=== PATIENT | female | born 1990 | race Caucasian/White ===

== ENCOUNTER 2019-03-21 04:50 | Inpatient (IN) | payer OTHER, SELFPAY ==
--- NOTE | 2019-03-19 12:52 | HP.PCM_ITS ---
History and Physical Date of Admission: 03/22/19 Pre-Op History and Physical ? HPI: The patient is a 28 year old female presenting for pre-operative visit. She is scheduled for?, for?h/o previous c/s on?03/22/19. ??Procedure discussed along with risks, benefits and complications. ?Other alternatives discussed for management. Consent form signed??Yes.? PAST?MEDICAL?HISTORY PAST MEDICAL HISTORY Diagnosis Date ? Cystic fibrosis screening 2016 ? done, neg ? Scoliosis ? ? ? PAST?SURGICAL?HISTORY PAST SURGICAL HISTORY Procedure Laterality Date ? SECTION SINGLE ? 08/01/2017 ? PAST SURGICAL HISTORY OF ? 2009 ? BACK SURGERY ? ? CURRENT?MEDICATIONS Current Outpatient Medications Medication Sig Dispense Refill ? PNV95/IRON FUM/FOLIC ACID ( ORAL) Take ?by mouth. ? ? ? No current facility-administered medications for this visit.? ? ALLERGIES:?Patient has no known allergies. ? PERSONAL HISTORY:? 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 FAMILY HISTORY:? FAMILY?HISTORY FAMILY HISTORY Problem Relation Age of Onset ? No Known Problems Mother ? ? No Known Problems Father ? ? No Known Problems Brother ? ? No Known Problems Sister ? ? Diabetes Maternal Grandmother ? ? Alzheimer's Disease Paternal Grandmother ? ? Heart Attack Maternal Grandfather ? ? Breast Cancer Maternal Aunt ?in her 40's ? other (Other) Maternal Aunt ?No obstetrics gynecology physician/colon cancer ? Heart Attack Son ? ? REVIEW OF SYMPTOMS: GENERAL: denies fevers or chills ENDOCRINOLOGY: has not been on steroids Cardiology : denies palpitations or chest pain Respiratory: denies SOB or cough Hematology: denies history of prolonged bleeding or easy bruising or VTE Allergy: Denies history of personal or family history of allergy to anesthesia ? ? PHYSICAL EXAMINATION: ? VITALS:?Last menstrual period 06/21/2018, not currently . ? GENERAL:??The patient is well nourished, well hydrated in no acute distress. ?, The patient is oriented to time, place, and person. NECK:?Supple. No lynphadenopathy, normal thyroid, no thyromegaly. LUNGS:?Clear to auscultation bilaterally. no wheezes, rhonchi or rales HEART:?Regular rate and rhythm, Normal heart sounds and No murmurs or gallops abd- soft, nontender, gravid ? IMPRESSION/PLAN: The risks/benefits/alternatives and personal involved for the planned?c/s?were reviewed with the patient. Her questions were answered to her satisfaction and she desires to proceed. ?Consent was signed. ?I reviewed with her postop instructions and expectations. ? ? I have reviewed and updated past medical and surgical history, medications and allergies? This history and physical was completed in my office on 03/19/2019 Irma Molina M.D.
[2019-03-21] VITALS (23 sets, daily range): BP systolic 84–114; BP diastolic 38–74; PULSE 69–96; RESP 16–18; TEMP 36.2–36.9; O2SAT 98–100; BMI 29.0
[2019-03-21] MEDS: Lactated Ringers 1,000 ML 999 ML IV (05:15)
[2019-03-21 05:38] LABS: Absolute Lymphocyte Count 2.24 X10^3/ul (0.83-4.51); Absolute Neutrophil Count 6.3 X10^3/uL (2.0-7.7); Basophil# 0.01 X10^3/uL; Basophil% 0.1 % (0-1); Eosinophil# 0.06 X10^3/uL; Eosinophils% 0.6 % (0-5); Hematocrit 41.4 % (37-47); Lymphocyte # 2.24 X10^3/ul (4.0); Lymphocyte % 23.5 % (19-41); Mean Corp Hgb Conc 33.8 g/gl (32-36); Mean Corpuscular Hgb 29.6 pg (27.0-32.0); Mean Corpuscular Volume 87.5 fL (81-99); Mean Platelet Vol. 10.5 fl (6.2-12.0); Monocyte# 0.87 X10^3/uL; Monocyte% 9.1 % (0-10); Neutrophil # 6.31 X10^3/uL (2.7-7.7); Neutrophil % 66.2 % (47-70); Platelet Count 212 K/mm3 (150-450); RBC Distribution Width CV 13.6 % (11.6-14.6); RBC Distribution Width SD 43.3 fl (35.1-43.9); Red Blood Count 4.73 M/mm3 (4.2-5.4); White Blood Count 9.5 K/mm3 (4.4-11.0)
[2019-03-21 05:39] LABS: POSITIVE COUNT NO; POSITIVE DIFFERENTIAL NO; POSITIVE MORPHOLOGY NO
[2019-03-21] MEDS: Lactated Ringers 1,000 ML 150 ML IV (06:50)
[2019-03-21] MEDS: Sodium Citrate/Citric Acid 30 ML UDC PO (07:18)
[2019-03-21] MEDS: Oxytocin 30 units/NS 500 ml 30 UNITS/500 ML IV.SOLN 167 UNITS IV (07:52)
[2019-03-21] MEDS: Cefazolin 2 GM in 0.9% Normal Saline 100 ML IV (08:13)
--- NOTE | 2019-03-21 08:23 | PCM.OPRPT ---
Delivery Classification: Scheduled Final DIONNE: 03/28/19 Final DIONNE Source: US <20 weeks Gestational age: 39 Weeks and 0 Days Indications for : Repeat Elective Description of Procedure: The patient was taken to the operating room. She was prepped and draped in the dorsal supine position with a leftward tilt. A Pfannenstiel skin incision was made approximately 2 cm above the symphysis pubis and carried through to underlying layer fascia with the scalpel. The fascia was incised incised in the midline and extended laterally with the Mohr scissors. The fascia was dissected off the rectus muscles with blunt and sharp dissection. The rectus muscles were in the midline and the peritoneum was entered bluntly. The peritoneal incision was stretched and the bladder blade was placed. The uterine incision was made in a low transverse fashion with the scalpel and extended superiorly and inferiorly with blunt dissection. The amniotic membranes were ruptured bluntly and clear amniotic fluid returned. The 's head was brought to the incision in the flexed position, an attempt was made to deliver it with fundal pressure but there is very minimal stretch to the rectus muscles. The incision was extended somewhat in the left rectus muscle was divided slightly and the skin incision was extended as well. The head then engaged, but was still not able to be delivered with fundal pressure so the vacuum was placed on the flexion point and the vacuum created 550 mmHg. With one pull and no pop offs the head then delivered. A loose nuchal cord x1 was easily reduced. The remainder of the infant was delivered with gentle traction and fundal pressure in the standard fashion. The mouth and nares were bulb suctioned. The cord was clamped and cut as the was stimulated. Cord clamping was delayed. The infant was handed off to the waiting nursing staff. The placenta was delivered with fundal massage and gentle traction in the standard fashion. The uterus was exteriorized and cleared of all clots and debris. The cervix was dilated with a ring forcep. The uterine incision was closed with #1 Vicryl in a running locked fashion. A second layer of the same suture was used in an imbricating fashion. The incision was examined and was found to be hemostatic. The uterus was placed back into the peritoneal cavity and hemostasis was again confirmed. The rectus muscles were examined and any bleeding was Bovie cauterized. The parietal peritoneum and rectus muscles were closed en bloc with an 0 Vicryl running suture. The surgical teams outer gloves were then changed. The rectus fascia was examined and any bleeding was Bovie cauterized and the rectus fascia was closed with 1 Vicryl suture in a running standard fashion. The subcutaneous tissue was examining and any bleeding was Bovie cauterized. The skin was closed in a subcuticular fashion. Performed the entire procedure with assistance. All sponge, lap, and needle counts were correct. The patient was taken to her room for recovery in a stable condition. Amniotic Membrane Rupture Type: Artificial Amniotic Fluid Description: Clear - large amount Placenta Disposition: [facility] Drain: Jerez to straight drain Fluids Replaced: 1600cc Cord Entanglement: Around neck x 1, loose Nuchal Cord Compression: Without compression Cord Vessel Description: 3 Vessels Esitmated Blood Loss (ml): 800 Infant Gender: Male (1 minute): 9 (5 minute): 9 Delayed cord clamping: Yes Pre-op Antibiotic Given: Ancef 2 grams IV x1 - Admit VTE Documentation VTE Present on Admission: No VTE Mechan Device Prophylaxis: SCD's VTE Pharm Prophylaxis ordered?: No Reason prophylaxis not ordered:: Procedure Not Indicated
[2019-03-21] MEDS: Lactated Ringers 1,000 ML 100 ML IV ×3 (08:30→15:33)
[2019-03-21] MEDS: Ondansetron 4 MG/2 ML Vial IV (09:55)
[2019-03-21] MEDS: Nalbuphine 10 MG/ML Ampul 5 MG IV (11:08)
[2019-03-21] MEDS: 0.9% Saline Lock 10 ML Syringe IV ×2 (14:45→21:08)
[2019-03-21] MEDS: Ketorolac 30 MG/ML Syringe IV ×2 (14:45→21:07)
[2019-03-21] MEDS: Senna/Docusate Sodium 1 Tablet PO (23:47)
[2019-03-22] VITALS (8 sets, daily range): BP systolic 95–110; BP diastolic 47–57; PULSE 79–88; RESP 15–18; TEMP 36.5–36.9; O2SAT 99–100
[2019-03-22] MEDS: Ketorolac 30 MG/ML Syringe IV ×4 (03:25→21:47)
[2019-03-22] MEDS: 0.9% Saline Lock 10 ML Syringe IV (03:26)
[2019-03-22 05:43] LABS: Hematocrit 32.9 % (37-47); Hemoglobin 10.8 g/dl (12.0-15.0); Mean Corp Hgb Conc 32.8 g/gl (32-36); Mean Corpuscular Volume 88.4 fL (81-99); Mean Platelet Vol. 10.5 fl (6.2-12.0); Platelet Count 156 K/mm3 (150-450); RBC Distribution Width CV 13.9 % (11.6-14.6); RBC Distribution Width SD 45.4 fl (35.1-43.9); Red Blood Count 3.72 M/mm3 (4.2-5.4); White Blood Count 12.1 K/mm3 (4.4-11.0)
[2019-03-22 05:45] LABS: Scan Indicated on CBC? Y/N NO
[2019-03-22] MEDS: Acetaminophen 500 MG Tablet 1000 MG PO (08:17)
--- NOTE | 2019-03-22 08:28 | PCM.PN.OB ---
Subjective: Pain well controlled. Average lochia. Tolerating regular diet. Was a little bit lightheaded yesterday but feeling much better this morning. No chest pain or shortness of breath. - Physical Exam General: Alert, Cooperative, No apparent distress Abdomen: Soft, Distended - Currently, softly, Tender - Appropriately, - Extremities: Edema - Trace Skin: Incision - Clean dry and intact bandage Vital Signs Temp Pulse Resp BP Pulse Ox 98.2 F 79 15 95/47 L 100 03/22/19 03:27 03/22/19 05:28 03/22/19 05:28 03/22/19 03:27 03/22/19 05:28 Oxygen Delivery Method Room Air Weight: 81.647 kg Body Mass Index (BMI) 29.0 Intake and Output for Last 24 Hours 03/20/19 03/21/19 03/22/19 23:59 23:59 23:59 Intake Total 7507 / 7507 771 / 771 Output Total 3200 / 3200 450 / 450 Balance 4307 / 4307 321 / 321 Laboratory Tests Past 24 Hrs 03/22/19 05:32 WBC 12.1 H RBC 3.72 L Hgb 10.8 L Hct 32.9 L MCV 88.4 MCH 29.0 MCHC 32.8 RDW 13.9 RDW Differential 45.4 H Plt Count 156 MPV 10.5 Medical Necessity - Tobacco Use Smoking Status: Never smoker Assessment/Plan Postoperative day #1 status post repeat section. Mild acute blood loss anemia is appropriate for blood loss during surgery hemodilution. Patient is doing well. is breast-feeding and doing well. Routine care for today.
[2019-03-22] MEDS: Senna/Docusate Sodium 1 Tablet PO (09:22)
[2019-03-23 01:55] VITALS: BP 97/58; PULSE 78; RESP 18; TEMP 36
[2019-03-23] MEDS: 0.9% Saline Lock 10 ML Syringe IV (02:22)
[2019-03-23] MEDS: Ketorolac 30 MG/ML Syringe IV ×2 (02:22→09:23)
[2019-03-23] MEDS: oxyCODONE 5 MG Tablet PO (07:51)
[2019-03-23 08:00] VITALS: BP 106/65; PULSE 88; RESP 16; TEMP 36.8; O2SAT 96
--- NOTE | 2019-03-23 09:27 | DCINST_ITS ---
Discharge Diet: No Restrictions Discharge Activity: May Not Drive - for 2 weeks or while taking narcotic pain meds., May Shower, May Take a Tub Bath - in 7 days. May resume sexual activity in: 4-6 weeks Lifting Restrictions: 20 pounds Additional Activity Instructions:: Nothing in the vagina for 4-6 weeks. You may return to work/school in 6 weeks. Call your doctor if your incision/area has: Continuous Slow Oozing, Sudden Increased Bleeding, Increased Pain/ Swelling, Increased Redness, Foul Smelling Discharge Call your doctor if you observe: Fever of 101 or Higher, Inability to urinate, Inability to have a bowel movement, Using more than one pad per hour, Uncontrolled pain Suture Line Care: Avoid Pulling/Pushing, Avoid Pinching/Bending Cleanse incision/area with: Soap & Water, Keep Dressing Clean & Dry Additional Instructions: If you experience any of the following, contact your healthcare provider. * Bleeding that soaks a pad every hour for 2 hours * Fever 100.4 or higher * Unrelieved incision or abdominal pain * Swelling, redness, discharge or bleeding from your incision or episiotomy site * Your incision begins to separate * Problems urinating (including inability to urinate or burning while urinating). * Visual changes * Severe headache * Flu-like symptoms * Pain or redness in one of both of your breasts * Pain, warmth, tenderness or swelling in your legs, especially the calf area * Frequent nausea and vomiting * Symptoms of depression or anxiety If you experience any of the following, call 911 or go to the nearest Emergency Room. * Chest pain * Problems breathing * Seizure activity * Partial or complete paralysis of a body part, slurred speech, weakness or drooping of the face, or a sudden inability to walk or hold your balance Allergies/Adverse Reactions: Allergies No Known Allergies Allergy (Verified 08/01/17 10:55) Medications to take at Discharge Vits [Prenatabs FA ] 1 tablet PO DAILY 07/25/17 Acetaminophen [Tylenol] 1,000 mg PO Q8H PRN tablet 03/23/19 Docusate Sodium [Colace] 100 mg PO BID capsule 03/23/19 Ibuprofen [Motrin] 600 mg PO Q6H PRN #60 tab 03/23/19 Oxycodone HCl/Acetaminophen [Percocet 5-325] 1 - 2 tab PO Q6H PRN PRN 7 Days #5 tab 03/23/19 The following prescriptions were given: Oxycodone HCl/Acetaminophen [Percocet 5-325] 1 - 2 tab PO Q6H PRN PRN 7 Days #5 tab PRN Reason: Pain Ibuprofen [Motrin] 600 mg PO Q6H PRN #60 tab PRN Reason: Pain Follow-Up: Call to make an appointment with your doctor for an incision check in 1-2 weeks. You will also need a 6 week post- follow up appointment. Test results from this visit will be discussed in further detail at your follow- up appointment, if applicable. Please Follow Up With: Irma Molina MD - Follow-up as scheduled for 1-2 week and 6 week PP visit Primary Care Physician: Stefania Arrington MD [Primary Care Provider] - Proposed Discharge Date: 03/23/19
--- NOTE | 2019-03-23 09:50 | PN.OBGYN_ITS ---
Subjective: Patient sitting up in bed bonding with baby at this time. Patient reports that baby is latching well overall. Patient is ambulatory and denies severe incisional pain, denies issues with urination. Patient desires discharge to home today. Objective: VSS, Afebrile Nipples without cracks or blisters, no ecchymoses noted Abdomen NT x 4 quadrants, FF midline 2FB below umbilicus, incisional dressing dry and intact +2/4 reflexes in LE, no edema, negative calf tenderness BL Scant rubra lochia - Physical Exam General: Alert, Oriented x3, Cooperative HEENT: Atraumatic, Normocephalic Neck: Supple Lungs: Normal air movement Cardiovascular: Regular rate, Regular Rhythm Abdomen: Soft, Non Tender Extremities: No edema, Capillary Refill Less than 3 Seconds Skin: No rashes, No breakdown Musculoskeletal: No Tenderness to Palpation of Joints or Extremities Neurological: Cranial nerves II-XII grossly intact Psych/Mental Status: Normal Affect, Appropriate Vital Signs Temp Pulse Resp BP Pulse Ox 98.2 F 88 16 106/65 96 03/23/19 08:00 03/23/19 08:00 03/23/19 08:00 03/23/19 08:00 03/23/19 08:00 Oxygen Delivery Method Room Air Weight: 180 lb Body Mass Index (BMI) 29.0 Intake and Output for Last 24 Hours 03/21/19 03/22/19 03/23/19 23:59 23:59 23:59 Intake Total 7507 / 7507 771 / 771 Output Total 3200 / 3200 900 / 900 Balance 4307 / 4307 -129 / -129 Medical Necessity - Tobacco Use Smoking Status: Never smoker Assessment/Plan 28 y/o s/p rpt LTCS, POD #2, Normal PP Course P: 1) Discharge patient to home 2) PP instructions and incision care reviewed 3) Follow-up as scheduled at [facility] HENSLEY
[2019-03-23] MEDS: Docusate Sodium 100 MG Capsule PO (10:04)
--- NOTE | 2019-03-25 17:07 | NURSING ---
19 Bili elevated to 19, but milk in and nursing well and lots of poo's and pee's and stool yellow/yellow. Bleeding decreasing. All is going well! Hospital stay went super well! Vika RN IBCLC
== END 2019-03-23 11:40 | disposition home or self-care (01) | DRG 787 ==
PROVIDERS: Admitting Provider Obstetrics & Gynecology; Referring Provider Obstetrics & Gynecology; Visit Provider Obstetrics & Gynecology
PROC: 10D00Z1 Extraction of Products of Conception, Low, Open Approach (ICD-10-PCS; CPT 59514; principal; 2019-03-21 07:15)
DX: O34.211 Maternal care for low transverse scar from previous cesarean delivery (principal); D62 Acute posthemorrhagic anemia; O69.81X0 Labor and delivery complicated by cord around neck, without compression, not applicable or unspecified; O90.81 Anemia of the puerperium; O99.89 Other specified diseases and conditions complicating pregnancy, childbirth and the puerperium; M41.9 Scoliosis, unspecified; Z3A.39 39 weeks gestation of pregnancy; Z37.0 Single live birth
CPT/HCPCS: 85025; 85027; 86850; 86900; 99218; J7120; A4216; G0378; J2405

== ENCOUNTER → 2021-02-26 09:47 | Outpatient (CLI) | payer OTHER, SELFPAY ==
[2019-03-21 05:48] VITALS: BMI 29.0
[2021-02-26 10:53] LABS: Glucose GTT-Gestation. Fasting 81 mg/dL (<105)
[2021-02-26 11:42] LABS: Glucose GTT-Gestational 1 Hr 136 mg/dL (<190)
[2021-02-26 13:17] LABS: Glucose GTT-Gestational 2 Hr 123 mg/dL (<165)
[2021-02-26 14:07] LABS: Glucose GTT-Gestational 3 Hr 100 L (<145)
[2021-02-27 10:54] LABS: CMV Acute Antibody IgM < 30.0 AU/mL (0.0-29.9); Toxoplasma Gondii IgM 5.3 AU/mL (0.0-7.9)
[2021-02-27 10:55] LABS: CMV Antibody IgG < 0.60 U/mL (0.00-0.59); Toxoplasma Gondii IgG 66.5 IU/mL (0.0-7.1)
== END ==
PROVIDERS: Referring Provider Obstetrics & Gynecology; Visit Provider Obstetrics & Gynecology
DX: O35.0XX1 Maternal care for (suspected) central nervous system malformation in fetus, fetus 1 (principal); O30.009 Twin pregnancy, unspecified number of placenta and unspecified number of amniotic sacs, unspecified trimester; Z3A.00 Weeks of gestation of pregnancy not specified
CPT/HCPCS: 36415; 82951; 82952; 86644; 86645; 86777; 86778

== ENCOUNTER 2021-05-18 09:10 | Inpatient (IN) | payer OTHER, SELFPAY ==
[2019-03-21 05:48] VITALS: BMI 29.0
--- NOTE | 2021-05-12 13:38 | PCM.HP.BLA ---
History and Physical Date of Admission: 05/18/21 ASSESSMENT & PLAN: 31 year old EGA:37w5d. Plan for delivery in <30 days. ? POST DELIVERY CONTRACEPTION: Discussed post-delivery contraception options. Patient received written information about post-delivery contraception options. Patient desires permanent sterilization. ? SUBJECTIVE: CHIEF COMPLAINT: Scheduled section ? HISTORY OF THE PRESENT ILLNESS: The patient is a 31 year old female, , who is at 37w5d with an DIONNE of 05/28/2021, by Last Menstrual Period dating method. Patient has Good movement. Denies vaginal bleeding.. Patient is GBS Positive. ? Her has been complicated by the following issues: Active Non-Hospital Problems ? Diagnosis Date Noted ? Elevated glucose 03/01/2021 ? ? Overview Note: ? ? abnormal 1 hr, 3hr normal. Irma Molina MD ? ? Ventriculomegaly of brain on ultrasound 02/23/2021 ? ? Overview Note: ? ? 03/23/21: resolved. Karla Cook MD ? maternal serum Toxoplasma results (IgG positive, IgM negative, high avidity) Lab Interpretation (lab tab): 'because our lab uses several serological assays beyond IgG and IgM) our results are most likely consistent with an infection acquired in the distant past and prior to . The incidence of congenital toxoplasmosis in offspring of women infected prior to gestation has been shown to be extremely rare (approaching zero) unless a woman in immunocompromised. Anti-toxoplasma treatment is not indicated in this patient unless she is immunocompromised.' ? Reviewed the above with Ms. Dolan. Discussed; questions answered. Let her know that the lab recommends testing the 10 days after for, a least, the serological panel at [facility] ([facility]), IgG, IgM ISAGA and IgA and be followed until Toxoplasma IgG disappears. Patient wishes this. Will communicate to her Clinical Physician Assistant to communicate to peds team. ? Also recommended per Dr. Menezes to follow-up with ultrasounds to follow growth and ventriculomegaly Patient agreeable. ? ? ? Moderate polyhydramnios; resolved unilateral ventriculomegaly (risk-reducing NIPS; Toxoplamosis serologies c/w distant infection) 02/23/2021 ? ? Overview Note: ? ? 05/05/21: GALI 34cm. Karlajorge luis Cook MD ? 03/23/21: borderline high normal now at 24.5cm. Karla Cook MD ? ? ? Family history of cystic fibrosis 10/14/2020 ? ? Overview Note: ? ? 10/14/2020 Patient's niece with cystic fibrosis. Patient had CF carrier screening testing in the past and was negative . TKRN ? ? Maternal care due to low transverse uterine scar from previous delivery 08/16/2018 ? ? Overview Note: ? ? plans repeat c/s. Irma Molina MD ? ? ? Positive GBS test 07/17/2017 ? Scoliosis 07/14/2017 ? Encounter for supervision of other normal , second trimester 03/02/2017 ? ? ? ANESTHESIA COMPLICATIONS: None ? HISTORY REVIEW PAST MEDICAL HISTORY PAST MEDICAL HISTORY Diagnosis Date ? Cystic fibrosis screening 2016 ? done, neg ? Scoliosis ? ? PAST SURGICAL HISTORY PAST SURGICAL HISTORY Procedure Laterality Date ? DELIVERY ONLY ? 03/21/2019 ? RC/S low transverse ? SECTION SINGLE ? 08/01/2017 ? PAST SURGICAL HISTORY OF ? 2009 ? BACK SURGERY ? FAMILY HISTORY FAMILY HISTORY Problem Relation Age of Onset ? No Known Problems Mother ? ? No Known Problems Father ? ? No Known Problems Brother ? ? No Known Problems Sister ? ? Diabetes Maternal Grandmother ? ? Stroke Maternal Grandmother ? ? Heart Attack Maternal Grandmother ? ? Alzheimer's Disease Paternal Grandmother ? ? Heart Attack Maternal Grandfather ? ? Breast Cancer Maternal Aunt ? ? in her 40's ? other (Other) Maternal Aunt ? ? No sales support assistant/colon cancer ? No Known Problems Son ? ? No Known Problems Son ? ? SOCIAL HISTORY Social History ? Tobacco Use ? Smoking status: Never Smoker ? Smokeless tobacco: Never Used Vaping Use ? Vaping Use: Never used Substance Use Topics ? Alcohol use: No ? Drug use: No ? Obstetric History T2 L2 SAB0 TAB0 Ectopic0 Multiple0 Live Births2 Comment: G1 c/s breech- Op report reviewed, double layer closure w/ vicryl Name of Baby 1: Basilio Date: 08/01/17 GA: 39w0d Delivery: , Low Transverse Apgar1: Not recorded Apgar5: Not recorded Living: Living ? Name of Baby 2: Nakul Date: 03/21/19 GA: 39w0d Delivery: , Low Transverse Apgar1: 9 Apgar5: 9 Living: Living ? Name of Baby 3: Not recorded Date: Not recorded GA: Not recorded Delivery: Not recorded Apgar1: Not recorded Apgar5: Not recorded Living: Not recorded ? ? ALLERGIES: ALLERGIES ALLERGIES No Known Allergies ? PRIOR TO ADMISSION MEDICATIONS: Prior to Admission medications as of 05/12/21 1011 Medication Sig Last Dose Taking PNV95/IRON FUM/FOLIC ACID ( ORAL) Take by mouth. Taking Yes ? No medication comments found. ? REVIEW OF SYSTEMS: GENERAL: denies fevers or chills ENDOCRINOLOGY: has not been on steroids Cardiology : denies palpitations or chest pain Respiratory: denies SOB other than normal for or cough Hematology: denies history of prolonged bleeding or easy bruising or VTE Allergy: Denies history of personal or family history of allergy to anesthesia ? ? OBJECTIVE: ? PHYSICAL EXAM: General: WD, WN HEENT: NC/AT, sclera white, pupils equal, no thyromegaly Lungs: clear, Heart: RR, S1, S2 Abdomen: soft, nontender, no masses Uterus: soft, NT Extremities: no edema DTRs: 2+ ? Pelvimetry: n/a ? LAST VITALS: BP 98/58 Wt 176 lb (79.8 kg) LMP 08/21/2020 BMI 28.41 kg/m? Heart Rate: 140 LABS Diagnostic tests reviewed for today's visit: BPP ? Delivery Plan: Delivery Plan includes: , Primary Reason for is previous c/s, polyhydramnios, and EFW is AGA. Plan for bilateral salpingectomy for sterilization Assessment & Plan Assessment/Plan (1) 38 weeks gestation of : (2) Supervision of other high risk pregnancies, third trimester: (3) Request for sterilization: (4) Polyhydramnios affecting in third trimester: (5) Previous delivery affecting :
[2021-05-18] VITALS (13 sets, daily range): BP systolic 87–109; BP diastolic 44–63; PULSE 66–87; RESP 16–18; TEMP 36.1–37.1; O2SAT 96–100; BMI 28.4
[2021-05-18] MEDS: Lactated Ringers 1,000 ML 999 ML IV (10:15)
[2021-05-18 10:38] LABS: Absolute Lymphocyte Count 1.75 X10^3/uL (0.83-4.51); Absolute Neutrophil Count 7.4 X10^3/uL (2.0-7.7); Basophil# 0.02 X10^3/uL; Basophil% 0.2 % (0-1); Eosinophil# 0.03 X10^3/uL; Eosinophils% 0.3 % (0-5); Hematocrit 38.8 % (37-47); Hemoglobin 12.7 g/dL (12.0-15.0); Lymphocyte # 1.75 X10^3/ul (0.83-4.51); Lymphocyte % 17.4 % (19-41); Mean Corp Hgb Conc 32.7 g/dL (32-36); Mean Corpuscular Volume 85.7 fL (81-99); Mean Platelet Vol. 10.9 fl (6.2-12.0); Monocyte# 0.74 X10^3/uL; Monocyte% 7.4 % (0-10); NRBC Flagged by Analyzer 0 % (0-5); Neutrophil # 7.42 X10^3/uL (2.7-7.7); Platelet Count 219 K/mm3 (150-450); RBC Distribution Width CV 13.5 % (11.6-14.6); RBC Distribution Width SD 41.8 fl (35.1-43.9); Red Blood Count 4.53 M/mm3 (4.2-5.4)
[2021-05-18] MEDS: Acetaminophen 500 MG Tablet 1000 MG PO ×3 (11:47→23:58)
[2021-05-18] MEDS: Lactated Ringers 1,000 ML 150 ML IV (11:47)
[2021-05-18] MEDS: Sodium Citrate/Citric Acid 30 ML UDC PO (14:15)
[2021-05-18] MEDS: Cefazolin 2 GM in 0.9% Normal Saline 100 ML IV (14:35)
--- NOTE | 2021-05-18 14:59 | FALS_PTH ---
PATIENT: MORGAN KAISER LOC: [facility] U#:[id number] AGE/SX: 31/F ROOM: WP004 RE05/18/[address]: Dr. Irma Molina MD : 1990 BED: 1 DIS: 05/20/2021 SPEC #: [id number] RECD: 05/18/21 16:09 STATUS: MICHAEL TARIQ #: [id number] HANNAH: 05/18/21 14:[address]: Irma Molina DEPT: SURGICAL PATHOLOGY RECD BY: Chuyita Rae Tissues: Fallopian tube Procedures: Surgery Specimen Level II HEADER OPERATION: Tubal ligation PRE-OP DIAGNOSIS: Sterilization TISSUE SUBMITTED: Fallopian tubes MICROSCOPIC DIAGNOSIS Bilateral fallopian tubes, salpingectomy: Bilateral fallopian tubes, no pathologic diagnosis. ANITA:sarita 05/20/21 MICROSCOPIC DESCRIPTION Slides are reviewed. GROSS DESCRIPTION Received in fixative is one container labeled with the patient's name and designated bilateral fallopian tubes, suture right. The specimen consists of bilateral fallopian tubes including fimbrial ends. The right tube shows a suture and measures 8 cm in length and up to 1 cm in diameter and the left fallopian tube measures 7 cm in length and 1 cm in diameter. Sections reveal congested cut surfaces. Scrubber Operator sections are submitted in two cassettes as follows: 1 - right fallopian tube, 2 - left fallopian tube. / SJ:sarita 05/19/21 TC:4 CPT: 40301 x2
--- NOTE | 2021-05-18 15:24 | EX.PCM.OBRPT ---
Assessment & Plan (1) Delivery outcome of liveborn infant: (2) delivery delivered: (3) 38 weeks gestation of : (4) Request for sterilization: Details Operative Information Date of Procedure: 05/18/21 Pre-Operative Diagnosis: previous c/s, polyhydramnios, sterilization request Post-Operative Diagnosis: same Classification: Scheduled Procedure Type: low transverse (With bilateral salpingectomy) training engineer #1: Carl Simpson Type of Anesthesia: Spinal Anesthesiologist: Patrick Schmidt Special Medications: duramoroph Antibiotic Given: Ancef 2 grams IV x1 Drain: Jerez to straight drain Estimated Blood Loss: 600 Fluids Replaced: 1200 Procedure Start Time: 14:56 Procedure Stop Time: 15:25 Time of Delivery: 14:59 Findings Description of Procedure: The patient was taken to the operating room. She was prepped and draped in the dorsal supine position with a leftward tilt. A Pfannenstiel skin incision was made approximately 2 cm above the symphysis pubis and carried through to underlying layer fascia with the scalpel. The fascia was incised incised in the midline and extended laterally with the Mohr scissors. The fascia was dissected off the rectus muscles with blunt and sharp dissection. The rectus muscles were in the midline and the peritoneum was entered bluntly. The peritoneal incision was stretched and the bladder blade was placed. The uterine incision was made in a low transverse fashion with the scalpel and extended superiorly and inferiorly with blunt dissection. The amniotic membranes were ruptured bluntly and copious amounts of clear amniotic fluid returned. The infant's head was brought to the incision in the flexed position and delivered without difficulty. The remainder of the infant was delivered with gentle traction and fundal pressure in the standard fashion. The mouth and nares were bulb suctioned. The cord was clamped and cut as the was stimulated. Cord clamping was delayed. The infant was handed off to the waiting nursing staff. The placenta was delivered with fundal massage and gentle traction in the standard fashion. The uterus was left in the peritoneal cavity. The cervix was dilated with a ring forcep. The uterine incision was closed with #1 Vicryl in a running locked fashion. The incision was examined and was found to be hemostatic. The left tube was identified and followed out to the fimbriated end. It was grasped and held up with Abie clamps. The LigaSure device was used to clamp, seal and transect the tube away from the cornual insertion of the uterus. The antimesenteric portions of the tube were then clamped, sealed and transected. The pedicles were hemostatic and the same procedure was performed formed on the contralateral side. Excellent hemostasis was noted. The rectus muscles were examined and any bleeding was Bovie cauterized. The parietal peritoneum and rectus muscles were closed en bloc with an 0 Vicryl running suture. The surgical teams outer gloves were then changed. The rectus fascia was examined and any bleeding was Bovie cauterized and the rectus fascia was closed with 1 Vicryl suture in a running standard fashion. The subcutaneous tissue was examining and any bleeding was Bovie cauterized. The subcutaneous tissue was reapproximated with 3-0 Vicryl suture. The skin was closed in a subcuticular fashion by the [employer] with me present in the labor and delivery suite. I performed the remainder of the procedure with assistance. All sponge, lap, and needle counts were correct. The patient was taken to her room for recovery in a stable condition. Presentation: Positive for Vertex Amniotic Membrane Rupture Type: Artificial Amniotic Fluid Description: Clear Placental Delivery Description: Expressed Placenta Disposition: [facility] Specimen(s) Sent to Pathology: bilateral fallopian tubes Cord Vessel Description: 3 Vessels Cord Entanglement: None A Gender: Male (Jesse) (1 minute): 8 (5 minute): 9 Delayed Cord Clamping: Yes Admit VTE Documentation VTE Present on Admission: No VTE Mechan Device Prophylaxis: SCD's VTE Pharm Prophylaxis Ordered: No Reason Prophylaxis Not Ordered: Procedure Not Indicated
[2021-05-18] MEDS: Oxytocin 30 units/NS 500 ml 30 UNITS/500 ML IV.SOLN 167 UNITS IV (15:40)
[2021-05-18 16:11] LABS: Pathology Specimen OB SEE PATHOLOGY REPORT
[2021-05-18] MEDS: Ketorolac 30 MG/ML Syringe IV ×2 (16:23→22:15)
[2021-05-18] MEDS: Lactated Ringers 1,000 ML 100 ML IV (18:40)
[2021-05-19] VITALS (7 sets, daily range): BP systolic 95–101; BP diastolic 47–62; PULSE 66–81; RESP 16–18; TEMP 36.4–37; O2SAT 95–100
[2021-05-19] MEDS: Ketorolac 30 MG/ML Syringe IV ×2 (04:51→09:32)
[2021-05-19] MEDS: 0.9% Saline Lock 10 ML Syringe IV ×2 (04:51→09:32)
[2021-05-19 05:15] LABS: Hematocrit 35.5 % (37-47); Hemoglobin 11.2 g/dL (12.0-15.0); Mean Corp Hgb Conc 31.5 g/dL (32-36); Mean Corpuscular Hgb 27.7 pg (27.0-32.0); Mean Corpuscular Volume 87.9 fL (81-99); Mean Platelet Vol. 10.7 fl (6.2-12.0); Platelet Count 181 K/mm3 (150-450); RBC Distribution Width CV 13.8 % (11.6-14.6); Red Blood Count 4.04 M/mm3 (4.2-5.4); White Blood Count 11.4 K/mm3 (4.4-11.0)
[2021-05-19] MEDS: Acetaminophen 500 MG Tablet 1000 MG PO ×4 (06:33→23:59)
--- NOTE | 2021-05-19 08:10 | PCM.PN.OB ---
Subjective Subjective Patient seen at bedside. Feeling good. Has been up and voided without difficulty. Denies any CP, SOB, or dizziness. without difficulty. Anticipate discharge home tomorrow. Objective Data Objective Data Dressing is dry and intact Vital Signs: Vital Signs Temp Pulse Resp BP Pulse Ox 97.8 F 78 16 101/55 L 98 05/19/21 11:30 05/19/21 11:30 05/19/21 11:30 05/19/21 11:30 05/19/21 11:30 Oxygen Delivery Method Room Air Weight: 176 lb 5.917 oz Body Mass Index (BMI) 28.4 Intake & Output: Intake and Output for Last 24 Hours 05/17/21 05/18/21 05/19/21 23:59 23:59 23:59 Intake Total 1806 / 1806 708.33 / 708.33 Output Total 800 / 800 1250 / 1250 Balance 1006 / 1006 -541.67 / -541.67 Lab / Micro Data Result Diagrams: 05/19/21 05:07 Labs: Laboratory Results - last 24 hr 05/19/21 05:07: WBC 11.4 H, RBC 4.04 L, Hgb 11.2 L, Hct 35.5 L, MCV 87.9, MCH 27.7, MCHC 31.5 L, RDW Std Deviation 44.0 H, RDW Coeff of Tori 13.8, Plt Count 181, MPV 10.7 Micro: Microbiology 05/18/21 10:15 Mucosa - Nose SARS-CoV-2 Antigen (Rapid) - Final ROS Eyes Eyes: Denies blurry vision, change in vision or spots in vision ENT HEENT: Denies dizziness or headache(s) Cardiovascular Cardiovascular: Denies abdominal pain, chest pain or dyspnea Respiratory/Chest Respiratory/Chest: Denies cough, dyspnea, shortness of breath at rest or shortness of breath with exertion Gastrointestinal Gastrointestinal: Denies abdominal pain, diarrhea or vomiting Genitourinary Genitourinary: Denies change in urinary stream, difficulty urinating or dysuria Musculoskeletal Musculoskeletal: Reports none Integumentary Integumentary: Denies rash Neurologic Neurologic: Denies dizziness, headache(s), memory loss or weakness Physical Exam Const alert and no apparent distress General Appearance: cooperative and comfortable Exam Limitations: no limitations HEENT normocephalic Eyes General Eye: normal appearance of both eyes Neck full ROM General: normal visual inspection Chest Chest: symmetrical chest wall rise Resp normal respiratory effort and normal air movement Effort and Inspection: symmetric chest movement Auscultation: clear to auscultation bilaterally Cardio regular rate and regular rhythm GI normal to inspection, nondistended, normoactive bowel sounds Back/Spine normal ROM Extremity full ROM and no calf tenderness General Extremity: normal exam except as noted Skin no rashes or lesions noted Neuro CN's II-XII intact bilaterally Psych mental status grossly normal Assessment & Plan (1) delivery delivered: PLAN: POD #1 Repeat C/S Ambulate Pain control support Discharge home tomorrow
--- NOTE | 2021-05-19 08:52 | NURSING ---
Late entry documentation due to busy unit and high pt acuity.
[2021-05-19] MEDS: Senna/Docusate Sodium 1 Tablet PO (09:32)
[2021-05-19] MEDS: Naproxen 500 MG Tablet PO (15:35)
[2021-05-19] MEDS: oxyCODONE 5 MG Tablet PO (19:33)
[2021-05-20] MEDS: Naproxen 500 MG Tablet PO ×2 (01:12→10:23)
[2021-05-20 02:23] VITALS: BP 96/56; PULSE 79; RESP 18
[2021-05-20] MEDS: oxyCODONE 5 MG Tablet PO ×2 (02:25→07:50)
[2021-05-20] MEDS: Acetaminophen 500 MG Tablet 1000 MG PO (06:28)
[2021-05-20] MEDS: Senna/Docusate Sodium 1 Tablet PO (07:54)
[2021-05-20 07:57] VITALS: BP 104/64; PULSE 72; RESP 18; TEMP 36.6
--- NOTE | 2021-05-20 08:33 | PN.OBGYN_ITS ---
Subjective Subjective Pain well controlled, average lochia. Positive flatus but no bowel movement. Objective Data Objective Data Vital Signs: Vital Signs Temp Pulse Resp BP Pulse Ox 97.9 F 72 18 104/64 98 05/20/21 07:57 05/20/21 07:57 05/20/21 07:57 05/20/21 07:57 05/19/21 19:38 Oxygen Delivery Method Room Air Weight: 80 kg Body Mass Index (BMI) 28.4 Intake & Output: Intake and Output for Last 24 Hours 05/18/21 05/19/21 05/20/21 23:59 23:59 23:59 Intake Total 1806 / 1806 708.33 / 708.33 Output Total 800 / 800 1250 / 1250 Balance 1006 / 1006 -541.67 / -541.67 Lab / Micro Data Result Diagrams: 05/19/21 05:07 Micro: Microbiology 05/18/21 10:15 Mucosa - Nose SARS-CoV-2 Antigen (Rapid) - Final Physical Exam Const alert General Appearance: cooperative GI GI Narrative: soft, moderate distention, fundus firm, appropriately tender. Abdominal bandage clean dry and intact Assessment & Plan (1) delivery delivered: PLAN: Postoperative day #2, patient is doing well. is breast- feeding and doing well. Desires discharge home today.
--- NOTE | 2021-05-20 08:34 | PCM.DC.SUM ---
Providers Date of Admission: 05/18/21 Reason For Visit: REPEAT C SECTION Diagnosis Discharge Diagnosis (1) delivery delivered: Status: Acute Code(s): O82 - Encounter for delivery without indication Medications at Discharge Home Medications Prenatabs FA 1 tab PO DAILY 07/25/17 ibuprofen 600 mg PO Q6H PRN 20 Days #60 tablet 05/20/21 oxycodone 5 mg PO Q6H PRN PRN 7 Days #12 tablet 05/20/21 Hospital Course Operations section and - (And bilateral salpingectomy) Procedures None Summary of Care Provided Hospital Course: Patient is a 31-year-old multigravida with significant polyhydramnios who was recommended to be delivered between 38 and 39 weeks by maternal- medicine. She had a repeat low transverse section and bilateral salpingectomy performed on 05/18/2021 without difficulty. By postoperative day #2 she was ambulating, urinating tolerating regular diet and oral pain medications without difficulty. She was discharged home with routine instructions and prescriptions. Weight / BMI Weight Weight: 80 kg Body Mass Index (BMI) 28.4 ABG / Lab / Microbiology Data Result Diagrams: 05/19/21 05:07 Microbiology: Microbiology 05/18/21 10:15 Mucosa - Nose SARS-CoV-2 Antigen (Rapid) - Final D/C Instructions Discharge Diet: No restrictions May resume sexual activity in: 4-6 weeks Lifting Restrictions: 20 pounds Additional Activity Instructions: Nothing in the vagina for 4-6 weeks. You may return to work/school in 6 weeks. Call your doctor if your incision/area has: Continuous Slow Oozing, Sudden Increased Bleeding, Increased Pain/ Swelling, Increased Redness and Foul Smelling Discharge Call your doctor if you observe: Fever of 101 or Higher and Using more than 1 pad per hour (for 2 hours) Suture Line Care: Avoid Pulling/Pushing and Avoid Pinching/Bending Cleanse incision/area with: Keep Dressing Clean & Dry Please Follow Up With: Irma Molina MD When: Call to make an appointment for an incision check in 1-2 [phone]. You will need a post check in 6 weeks. Meaningful Use Info Meaningful Use Diagnoses (Choose all that apply): None applicable Discharge Plan Admission Admit Date/Time: 05/18/21 09:10 Primary Reason for Your Visit: and tubal ligation Attending Provider: Irma Molina Instructions Patient Instructions: After a Discharge Orders/Prescriptions Prescriptions: New ibuprofen [ibuprofen] 600 MG tablet 600 mg PO Q6H PRN (Reason: Pain) 20 Days Qty: 60 RF: 1 oxycodone 5 MG tablet 5 mg PO Q6H PRN PRN (Reason: severe pain) 7 Days Qty: 12 RF: 0 No Action Prenatabs FA 1 TABLET tablet 1 tab PO DAILY RF: 0 Disposition Disposition (needs filled in before D/C Order can be placed): Home, Self Care
[2021-05-24 09:05] LABS: Pathology Specimen OB SEE PATHOLOGY REPORT
== END 2021-05-20 11:15 | disposition home or self-care (01) | DRG 785 ==
PROVIDERS: Admitting Provider Obstetrics & Gynecology; Visit Provider Obstetrics & Gynecology
PROC: 10D00Z1 Extraction of Products of Conception, Low, Open Approach (ICD-10-PCS; CPT 59514; principal; 2021-05-18 11:45)
DX: O34.211 Maternal care for low transverse scar from previous cesarean delivery (principal); O40.3XX0 Polyhydramnios, third trimester, not applicable or unspecified; O99.824 Streptococcus B carrier state complicating childbirth; Z3A.38 38 weeks gestation of pregnancy; Z37.0 Single live birth; Z30.2 Encounter for sterilization
CPT/HCPCS: 85025; 85027; 86850; 86900; 86901; 87426; 88302; 99218; J7120; A4216; G0378; J2405